=== PATIENT | male | born 1990 | race Caucasian/White ===

== ENCOUNTER 2024-12-20 06:04 | Emergency (ER) | payer OTHER | END 2024-12-20 07:33 | disposition home or self-care (01) | LOC: JP.ED 06:04 | DX: L50.9 Urticaria, unspecified (principal); Z79.899 Other long term (current) drug therapy; Z87.891 Personal history of nicotine dependence; W57.XXXA Bitten or stung by nonvenomous insect and other nonvenomous arthropods, initial encounter | CPT/HCPCS: 99282 ==